=== PATIENT | male | born 1970 | race Caucasian/White ===

== ENCOUNTER 2016-06-21 02:49 | Emergency (ER) | payer OTHER ==
[~2016-06-21] VITALS: Ht 180.3 cm; Wt 83.9 kg
[~2016-06-21 02:49] MED LIST: AMITRIPTYLINE 225 MG PO; CODEIN PO; IBU800 MG PO; LORTAB 5/500 501 TAB PO; PERCOCET 5/3251 EACH PO; PHENERGAN 25MG.25 M1 PO; PREDNISONE 5MG.5 MG PO; SERTRALINE 50MG50 MG PO; SERTRALINE25 MG PO; TIZANIDINE HCL 44 MG NG; TYLENOL 325MG325 MG PO; ULTRAM50 MG PO; ZOLOFT25 MG PO; [UNRECOGNIZED DRUG - OTHER] PO
[2016-06-21] MEDS ORDERED: ZOLOFT100 MG PO (02:59)
[2016-06-21 03:23] LABS: LYMPH # 1.9 K/mm3 (0.7-4.5); LYMPH % 13.4 % (10-50)
[2016-06-21 03:52] LABS: URINE BILIRUBIN - DIPSTICK NEGATIVE (NEG); URINE BLOOD NEGATIVE (NEG)
--- NOTE | 2016-06-21 04:09 | Emergency Room Report ---
History of Present Illness Time Seen by [id number] Presenting Problem in Triage Pt arrived:Walked Presenting Problem:PAIN IN ABDOMEN THAT WOKE HIM UP 10/10 ON PAIN SCALE. LAST BM WAS YESTERDAY AND NORMAL. 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 N Clinical Suspician of Infection? N Mental Status: 2 - Mildly Altered Sepsis Risk:Low Sepsis Risk Have you (or family members/close friends) recently traveled outside the [place]? N If Yes, where/when: Have you had exposure to infectious disease within the past month? N TB? Other? Specify: Source patient, RN notes reviewed, family, old records Exam Limitations no limitations Comment sudden onset of diffuse abd pain Cardiac Chest Pain Chest pain indicative of cardiac No Timing/Duration this evening Severity moderate ALLERGIES Coded Allergies: No Known Allergies (06/30/15) Home Medications Reported Medications Amitriptyline Hcl (Amitriptyline) 25 MG PO QHS #60 SERTRALINE HYDROCHLORIDE (Zoloft 100MG) 100 MG PO DAILY History Medical History General CAD? No Angina: No [place]: No Hypertension? No Hyperlipidemia? No CHF? No DVT? No PE? No COPD? No Asthma? No Anemia? No GERD? No Gastric ulcers? No GI Bleed? No Hernia? No Thyroid Problems? No Hypothyroidism? No CVA? No Seizures? No Diabetes? No Renal Insuffiency? No End Stage Renal Disease? No UTI? No Stones? No BPH? No GB Disease: No Nephritic Syndrome? No Asplenia? No Hepatitis? No Sickle Cell Disease? No Arthritis? No Migraines? Yes Cataracts? No Glaucoma? No MRSA? No HIV? No TB? No Anxiety? No Depression? No Cancer? No More? No Immunization Hx Ped.Immunizations UTD No DT/Tetanus 1-4 YRS Surgical Hx Previous Surgery?Y SPINAL FUSION Social History Smoking Hx Smoker: Former Smoker Tobacco: No Type Cigarettes Packs/day < 1 Pack Alcohol Alcohol: No Drugs none Review of Systems All Other Systems Reviewed and Negative Constitutional denies fever Eyes denies drainage ENT denies: ear pain, epistaxis, throat pain. Respiratory denies cough, denies shortness of breath, denies wheezing Cardiovascular denies chest pain, denies palpitations, denies syncope Gastrointestinal see HPI, abdominal pain, nausea Genitourinary denies: dysuria, frequency, hesitancy, hematuria. Musculoskeletal denies back pain, denies joint pain, denies neck pain Skin denies rash Psychiatric/Neurological denies headache, denies seizure Physical Exam Vital Signs Vital Signs Date Time Temp Pulse Resp B/P Pulse O2 O2 Flow FiO2 Ox Delivery Rate 06/21 0511 72 18 148/78 99 06/21 0426 18 06/21 0410 67 18 159/101 99 06/21 0323 18 06/21 0254 97.7 66 20 181/105 99 - WBC >12,000 or <4,000 or 10% bands? 2 or more SIRS Criteria Met? B/P:181/105 MAP:130 Creatinine >2.0? UA output<0.5ml/kg/hr for 2 hrs? Platelet count >100,000? Lactate >2.0mmol/1? INR >1.2 or PTT > than 60 sec? Evidence of Organ Dysfunction? Provider documented clinical suspician of infection? N Sepsis Criteria Count: 1 Sepsis Risk: Low Sepsis Risk General Appearance no apparent distress Eye Exam - bilateral eye PERRL, bilateral eye EOMI Ear, Nose, Throat normal ENT inspection Neck supple Respiratory Status No: respiratory distress. 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 No Results/Orders Laboratory Tests 06/21/16 0349: Urine Color YELLOW, Urine Appearance CLEAR, Urine pH 6.0, Ur Specific [place] >= 1.030, Urine Protein TRACE H, Urine Ketones NEGATIVE, Urine Blood NEGATIVE, Urine Nitrate NEGATIVE, Urine Bilirubin NEGATIVE, Urine Urobilinogen 0.2, Ur Leukocyte Esterase NEGATIVE, Urine RBC 3-5, Urine WBC 3-5, Urine Bacteria 1+, Urine Mucus 1+, Urine Glucose NEGATIVE 06/21/165: Sodium 138, Potassium 3.9, Chloride 102, Carbon Dioxide 31, BUN 16, Creatinine 1.0, Estimated Creat Clear 112, Estimated GFR (MDRD) 81, Glucose 126 H, Calcium 8.4 L, Total Bilirubin 0.4, AST 61 H, ALT 36, Alkaline Phosphatase 120 H, Total Protein 7.7, Albumin 3.9, Globulin 3.8 H, Albumin/Globulin Ratio 1.0 L, Amylase 48, Lipase 120, WBC 13.8 H, RBC 5.25, Hgb 16.0, Hct 46.9, MCV 89.3, RDW 12.7, Plt Count 303, MPV 5.6 L, Gran % 78.6, Gran # 10.9 H, Lymphocytes % 13.4 , Monocytes % 4.0, Eosinophils % 3.5, Basophils % 0.5, Lymphocytes # 1.9, Monocytes # 0.6, Eosinophils # 0.5 H, Basophils # 0.1, PUBS MCHC 34.2, MCH 30.5 Current Medication Orders Sig/Calixto Start time Last Medication Dose Route Stop Time Status Admin Morphine Sulfate 4 MG ONCE ONE 06/21 429 DC 06/21 IV 06/21 430 042 Promethazine HCl 12.5 MG ONCE ONE 06/21 429 DC 06/21 IV 06/21 430 0425 Sodium Chloride 25 ML ONCE ONE 06/21 429 DC / IV 06/22 443 0426 Promethazine HCl 0 .STK-MED ONE 06/21 420 DC .ROUTE Sodium Chloride 25 ML .STK-MED ONE 06/21 420 DC IV Morphine Sulfate 0 .STK-MED ONE 06/22 419 DC .ROUTE Ketorolac 30 MG ONCE ONE 06/21 329 DC 06/21 Tromethamine IV 06/21 330 032 Ondansetron HCl 4 MG ONCE ONE 06/21 329 DC 06/21 IV 06/21 Ketorolac 0 .STK-MED ONE 06/22 307 DC Tromethamine .ROUTE Ondansetron HCl 0 .STK-MED ONE 06/22 307 DC .ROUTE Orders Procedure Date/time Status DIET-NOTHING BY MOUTH 06/[address] ABD & PELVIS W/O CONTRAST 03/[address] ABD/PELVIS REQ 06/21 030 Complete IV SALINE LOCK 06/21 308 Active URINALYSIS/COMPLETE 06/21 308 Complete LIPASE 06/21 308 Complete CBC WITH AUTO DIFF 06/21 308 Complete CHEM 12 PROFILE 06/21 308 Complete AMYLASE 06/21 308 Complete XRAY/CT/US XRAY/CT/US CT abdomen, pelvis CT interpretation by discussed w/radiologist Time results known: 413 CT Results normal/NAD Departure Departure Time of Disposition 413 Disposition DC Home or Self Care(routine) Clinical Impression Primary Impression: Abdominal pain Qualifiers: Abdominal location: generalized Qualified Code: R10.84 - Generalized abdominal pain Condition STABLE Referrals Jim AVALOS,Carloz Todd (Family) Patient Instructions DI for Abdominal Pain-Adult Additional Instructions fluids and see pcp for follow up Discharge Counseling Counseled pt/family regarding diagnosis, test results, follow up needs ED Critical Care Critical Care No at 1948
[2016-06-21 05:35] VITALS: BP 145/75
--- NOTE | 2016-06-21 05:38 | RADIOLOGY REPORT PS360 ---
CT ABD PELVIS W/O CONTRAST CLINICAL INDICATION: ABD PAIN ORDERING PHYSICIAN: Marjorie Chowdhury MD PATIENT AGE: 46 years COMPARISON: 08/12/2009 TECHNIQUE: Axial images obtained with sagittal and coronal reformats. PROCEDURE: Oral Contrast: None IV Contrast: None . FINDINGS: Lower thorax: No acute finding ABDOMEN: Liver: No masses or biliary dilatation. Gallbladder: Nondistended. No radio opaque stones. Pancreas: No masses or peripancreatic fluid collections. Spleen: Unremarkable. Adrenals: Unremarkable Kidneys/ureters: No masses. No renal calculi. No hydronephrosis. No perinephric fluid collections. No ureteral dilatation or obvious ureteral calculi. Stomach bowel: Moderate amount retained colonic feces. Tiny umbilical hernia containing fat Appendix: No evidence of appendicitis. PELVIS: Reproductive: Unremarkable Bladder: Nondistended. No obvious stones or masses. ABDOMEN & PELVIS: Peritoneum: No abnormal fluid collections. No obvious inflammatory changes. No free air. Lymph nodes: No enlarged lymph nodes apparent. Vasculature: There are a few small mesenteric lymph nodes and retroperitoneal lymph nodes which are 1 cm or less in short axis. Bones: Mild sclerosis of the right SI joint with partial fusion IMPRESSION: 1. No acute intra-abdominal or pelvic pathology. 2. Other nonacute findings as described above
== END 2016-06-21 05:37 | disposition home or self-care (01) ==
LOC: ER 02:49
PROVIDERS: Emergency Medicine
DX: R10.84 Generalized abdominal pain (principal)
CPT/HCPCS: J2405

== ENCOUNTER 2016-09-19 19:12 | Emergency (ER) | payer OTHER ==
[~2016-09-19] VITALS: Ht 180.3 cm; Wt 83.9 kg
[~2016-09-19 19:12] MED LIST changes: +ZOLOFT100 MG PO
[2016-09-19] MEDS ORDERED: CODEIN PO (19:26)
[2016-09-19] MEDS ORDERED: [UNRECOGNIZED DRUG - OTHER] PO (19:26)
--- OUTSIDE RECORDS SUMMARY | 2016-09-19 19:29 | External Medical Summary Rpt ---
Demographics Preferred Language Danish Marital Status Unknown Faith Affiliation Unknown Race Unknown Ethnic Group Unknown Author Author , Organization [employer] Address Unknown Phone Unavailable Purpose Continuity of Care Document - 06-18-1996 through 2016 Immunization Name Date Route CVX Reacti Commen Provid Is Given on t er Refuse d Td Histor H201 No (adult 1996 ical ), Inform adsorb ation ed - Source Unspec ified
--- OUTSIDE RECORDS SUMMARY | 2016-09-19 19:29 | External Medical Summary Rpt ---
Author Author VIOLETTE Garcia, VIOLETTE Garcia Organization [employer] Address Unknown Phone Unavailable
--- OUTSIDE RECORDS SUMMARY | 2016-09-19 19:29 | External Medical Summary Rpt ---
Author Author , Organization [employer] Address Unknown Phone Unavailable Care Team Providers Care Chief Information Officer Name Role Phone Marjorie Chowdhury MD, Unavailable Unavailable Marjorie Chowdhury MD Purpose Continuity of Care Document - 10-13-2012 through 2016 Problems Code Diagnosis DOS Provider Status 813.05 813.05 FX 10-14-2012 [facility] E[facility]49[facility]8 E849.8 10-14-2012 [place] ACCIDENT IN [facility] E885.9 E885.9 FALL 10-14-2012 [place] FROM [facility] SLIPPING, Hospital TRIPPING, OR STUMBLING [facility] G43.909 MIGRAINE, UNSP, NOT INTRACTABLE , WITHOUT STATUS MIGRAINOSUS R10.9 UNSPECIFIED ABDOMINAL PAIN Allergies, Adverse Reactions, Alerts Type Drug Allergy Adverse Reaction to Substance Substance Reaction Severity Hydrocodone RAISES BP Intermediate Medications Na ND Rx Da Fi Fi Am Da Di Ph RX Ph St me C No te ll ll ou ys ag ar # ys at rm s nt no ma ic us Or Da si cy ia de te s n re d HY [address] 40 -3 OM 91 0- Lo OR 31 20 ng PH 23 13 er ON 0 E Ac 2 ti MG ve /M L CA RP UJ CT W[place] 00 06 0 No OM 64 -3 ET 11 0- Lo QUINTANILLA 49 20 ng ZI 53 13 er NE 5 Ac 25 ti ve MG /M L AM PU L AC 51 06 0 No ET 07 -3 AM 90 0- Lo IN 16 20 ng OP 19 13 er HE 9H N Ac W/ ti CO ve DE IN E #3 TA K Vital Signs 10-14-2012 00:56 Name Value Interpretat Reference Comment ion Range Body 98.6 [degF] Temperature BP 84 mm[Hg] Diastolic BP Systolic 143 mm[Hg] Heart 91 /min Rate/Pulse O2% 96 % Respiratory 17 /min Rate 10-14-2012 00:29 Name Value Interpretat Reference Comment ion Range Heart 75 /min Rate/Pulse O2% 98 % Respiratory 20 /min Rate Procedures Procedure DOS Code Location Performer Comment APPLICATI 93.54 [facility] ON OF [place] AVALOS SPLINT Encounters Encounter Start End Date Code Location Performer Type Date Emergency SONIA Chowdhury MD (ER) 3 23:51 3 00:56 [facility]
--- OUTSIDE RECORDS SUMMARY | 2016-09-19 19:29 | External Medical Summary Rpt ---
Demographics Preferred Language Romansh Marital Status Unknown Confucianist Affiliation Unknown Race Unknown Ethnic Group Unknown Author Author , Organization [employer] Address Unknown Phone Unavailable Purpose Continuity of Care Document - 06-18-1996 through 2016 Immunization Name Date Route CVX Reacti Commen Provid Is Given on t er Refuse d Td Histor H201 No (adult 1996 ical ), Inform adsorb ation ed - Source Unspec ified
--- OUTSIDE RECORDS SUMMARY | 2016-09-19 19:29 | External Medical Summary Rpt ---
Author Author , Organization [employer] Address Unknown Phone Unavailable Care Team Providers Care Icebox Man Name Role Phone Marjorie Chowdhury MD, Unavailable Unavailable Marjorie Chowdhury MD Purpose Continuity of Care Document - 10-13-2012 through 2016 Problems Code Diagnosis DOS Provider Status 813.05 813.05 FX 10-14-2012 [facility] E[facility]49[facility] E849.8 10-14-2012 [place] ACCIDENT IN [facility] E885.9 E885.9 FALL 10-14-2012 [place] FROM [facility] SLIPPING, Hospital TRIPPING, [place] STUMBLING [place] [...] ve /M L CA RP UJ CT PA 00 06 0 No OM 64 -3 [...] DOS Code Location Performer Comment APPLICATI 93.54 [facility] ON OF [place] AVALOS [place] Encounters Encounter Start End Date Code Location Performer Type Date Emergency SONIA Chowdhury MD (ER) 3 23:51 3 00:56 [facility]
--- NOTE | 2016-09-19 19:36 | Emergency Room Report ---
History of Present Illness Time Seen by 1925 Presenting Problem in Triage Pt arrived:Walked Presenting Problem:c/o migraine headache since 1 pm. c/o light sensitivity also. 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 N Clinical Suspician of Infection? N Mental Status: 1 - Regular (Normal Baseline) Sepsis Risk:Low Sepsis Risk Have you (or family members/close friends) recently traveled outside the [place]? N If Yes, where/when: Have you had exposure to infectious disease within the past month? N TB? Other? Specify: Source patient, RN notes reviewed, family, old records Exam Limitations no limitations Comment pt with acute crawford with hx of crawford - no fever/rash or neuro sx Cardiac Chest Pain Chest pain indicative of cardiac No Timing/Duration this evening Severity moderate ALLERGIES Coded Allergies: No Known Allergies (08/25/16) Home Medications Reported Medications Amitriptyline Hcl (Amitriptyline) 25 MG PO QHS #60 SERTRALINE HYDROCHLORIDE (Zoloft 100MG) 100 MG PO DAILY CODEINE/BUTALBITAL/ASA/CAFFEIN (Ascomp With Codeine Capsule) 1 CAP PO EVERY 4 HOUR PRN pain #60 History Medical History General CAD? No Angina: No [place]: No Hypertension? No Hyperlipidemia? No CHF? No DVT? No PE? No COPD? No Asthma? No Anemia? No GERD? No Gastric ulcers? No GI Bleed? No Hernia? No Thyroid Problems? No Hypothyroidism? No CVA? No Seizures? No Diabetes? No Renal Insuffiency? No End Stage Renal Disease? No UTI? No Stones? No BPH? No GB Disease: No Nephritic Syndrome? No Asplenia? No Hepatitis? No Sickle Cell Disease? No Arthritis? No Migraines? Yes Cataracts? No Glaucoma? No MRSA? No HIV? No TB? No Anxiety? No Depression? No Cancer? No More? No Immunization Hx DT/Tetanus 1-4 YRS Surgical Hx Previous Surgery?Y SPINAL FUSION Social History Smoking Hx Smoker: Never Smoker Tobacco: No Packs/day < 1 Pack Alcohol Alcohol: No Drugs none Review of Systems All Other Systems Reviewed and Negative Constitutional denies fever Eyes denies drainage ENT denies: ear pain, epistaxis, throat pain. Respiratory denies cough, denies shortness of breath, denies wheezing Cardiovascular denies chest pain, denies syncope Gastrointestinal see HPI, nausea, vomiting Genitourinary denies: dysuria, frequency, hesitancy, hematuria. Musculoskeletal denies back pain, denies joint pain, denies joint swelling, denies neck pain Skin denies rash Psychiatric/Neurological see HPI, headache, denies seizure Physical Exam Vital Signs Vital Signs Date Time Temp Pulse Resp B/P Pulse O2 O2 Flow FiO2 Ox Delivery Rate 09/19 2026 98.4 56 18 140/89 98 09/19 1953 98.4 58 12 138/77 98 09/19 1948 12 09/19 1918 98.4 64 20 137/78 98 - WBC >12,000 or <4,000 or 10% bands? 2 or more SIRS Criteria Met? B/P:138/77 MAP:97 Creatinine >2.0? UA output<0.5ml/kg/hr for 2 hrs? Platelet count >100,000? Lactate >2.0mmol/1? INR >1.2 or PTT > than 60 sec? Evidence of Organ Dysfunction? Provider documented clinical suspician of infection? N Sepsis Criteria Count: 1 Sepsis Risk: Low Sepsis Risk General Appearance no apparent distress Eye Exam - bilateral eye PERRL, bilateral eye EOMI Ear, Nose, Throat normal ENT inspection Neck non-tender Respiratory Status No: respiratory distress. 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 No Results/Orders Current Medication Orders Sig/Calixto Start time Last Medication Dose Route Stop Time Status Admin Sodium Chloride 10 ML PRN PRN 09/20 1999 AC IV 09/20 1950 Diphenhydramine HCl 25 MG ONCE ONE 09/19 1944 DC 06/05 IV 09/19 Ketorolac 30 MG ONCE ONE 09/19 1944 DC 09/19 Tromethamine IV 09/19 Promethazine HCl 12.5 MG ONCE ONE 09/19 1944 DC 09/19 IV 09/19 Sodium Chloride 1,000 ML .Q4H 09/19 1944 AC / IV 09/19 Sodium Chloride 10 ML PRN PRN 09/19 1944 AC IV 09/20 193 Sodium Chloride 25 ML ONCE ONE 09/19 1944 DC /05 IV 09/19 Diphenhydramine HCl 0 .STK-MED ONE 09/19 1942 DC .ROUTE Promethazine HCl 0 .STK-MED ONE 09/19 1942 DC .ROUTE Sodium Chloride 25 ML .STK-MED ONE 09/19 1942 DC IV Sodium Chloride 1,000 ML .STK-MED ONE 09/19 1942 DC IV Ketorolac 0 .STK-MED ONE 09/19 1941 DC Tromethamine .ROUTE Orders Procedure Date/time Status IV SALINE LOCK 09/19 1950 Active Progress ED Progress Notes Date 09/19/16 Time 2030 Comment improved Departure Departure Time of Disposition 1935 Disposition DC Home or Self Care(routine) Clinical Impression Primary Impression: Headache Qualifiers: Headache type: unspecified Headache chronicity pattern: acute headache Intractability: not intractable Qualified Code: R51 - Headache Condition STABLE Referrals Carloz Fernandez MD (Family) Patient Instructions DI for Headache Additional Instructions call pcp in am for follow up Discharge Counseling Counseled pt/family regarding diagnosis, test results, medications/RX, follow up needs ED Critical Care Critical Care No at 2030
[2016-09-19 21:21] VITALS: BP 137/85
== END 2016-09-19 21:22 | disposition home or self-care (01) ==
LOC: ER 19:12
DX: R51 Headache (principal)